=== PATIENT | female | born 1945 | race Caucasian/White ===

== ENCOUNTER → 2016-06-17 | Outpatient (CLI) | payer MEDICARE, BC ==
[~2016-06-17] MED LIST: AMLODIPINE BESYL5 MG PO; ASPIRIN81 M2 PO; ATORVASTATIN CA10 MG PO; HYDROCHLOROTHIA25 MG PO
--- NOTE | ~2016-06-17 | MY11 ---
[facility]. [facility] A Service of [facility] & [facility] RADIOLOGY TEXT RESULTS PATIENT: ROBBIN FERREIRA LOCATION: [facility] : 41 UNIT #: [id number] AGE: [address]: Dee Esparza APRN SEX: F ORDER DR: [id number] [address] [address] [id number] O MR#: [id number] Acc #: [id number] NAME: ROBBIN FERREIRA : 1945 SEX: F STUDY DATE/TIME: 06/17/2016 9:37 UNIT: [facility] ROOM: STUDY DESCRIPTION: MY Mammogram Screening Dig Sammy Attending Physician: Dee Esparza A.P.R.N. Referring Physician: Dee Esparza A.P.R.N. Ordering Physician: Dee Esparza A.P.R.N. Primary Care Physician: Dee Esparza A.P.R.N. MEDICAL IMAGING REPORT This report is preliminary unless electronic signature is present. EXAM Bilateral digital screening mammogram with CAD 06/17/2016. INDICATIONS 70-year-old female for routine screening. No reported problems and no personal or family history of breast cancer. No surgeries. TECHNIQUE CC and MLO views of breast were obtained and reviewed with an approved CAD device. COMPARISON 06/12/2015 05/23/2014 05/20/2013 FINDINGS Breast parenchyma is composed of scattered fibroglandular densities. The pattern is unchanged. There is no new dominant nodule or mass in either breast. No new suspicious cluster of microcalcifications. Benign calcifications are present. Faint skin moles are present in the upper outer quadrants, some of which are marked by the technologist but the notes indicate too many are present to garret all of them. The overall configuration and pattern has not significantly changed from prior studies. IMPRESSION Benign screening mammogram. One year followup recommended. Patients over the age of 40 are entered into a reminder system with target due date for the next mammogram. A result letter will also be sent to the patient. BIRADS: 2 Benign finding. Dictated by... Miguel Angel Arreola M.D. [facility] A Service of [facility] RADIOLOGY TEXT RESULTS PATIENT: ROBBIN FERREIRA LOCATION: [facility] : 41 UNIT #: [id number] AGE: [address]: Dee Esparza APRN SEX: F ORDER DR: THIS IS AN ELECTRONICALLY VERIFIED REPORT Miguel Angel Arreola M.D. at 06/17/2016 3:39 PM Anita TD: 06/17/2016 13:18 JOB #: [id number] MEDICAL IMAGING REPORT
== END | disposition home or self-care (01) ==
LOC: SMAM 08:44
DX: Z12.31 Encounter for screening mammogram for malignant neoplasm of breast (principal)
CPT/HCPCS: G0202